=== PATIENT | female | born 1995 | race Two or more races ===

== ENCOUNTER 2023-03-13 17:30 | Emergency (ER) | payer OTHER ==
[~2023-03-13] VITALS: Ht 167.6 cm; Wt 82.6 kg
[2023-03-13] MEDS ORDERED: LEVOTHYROXINE25 MCG PO (17:58)
[2023-03-13 19:52] LABS: HEMATOCRIT 40.2 % (36.0-45.00); HEMOGLOBIN 13.9 g/dL (12.0-15.00); MEAN CORPUSCULAR HGB CONC 34.5 g/dl (32.0-36.0); PLATELET COUNT 275 K/uL (150-450); RED BLOOD COUNT 4.62 M/uL (4.00-6.00); RED CELL DISTRIBUTION WIDTH 14.2 % (11.5-14.5)
[2023-03-13 20:31] LABS: BILIRUBIN TOTAL 0.51 mg/dL (0.3-1.2); CALCIUM 8.8 mg/dL (8.5-10.1); CREATININE SERUM 0.74 mg/dL (0.55-1.02); GFR 94.14; GLOBULINA 3.3 G/DL (2.4-3.5); POTASSIUM 3.94 mEq/L (3.5-5.1); TOTAL PROTEIN 7.3 gm/dL (6.4-8.2)
[2023-03-13 20:40] LABS: PH,URINE 6.5 (5.0-8.0); URINE APPEARANCE Clear; URINE BILIRRUBIN Negative (NEGATIVE); URINE BLOOD Negative; URINE COLOR Yellow; URINE GLUCOSE Negative (NEGATIVE); URINE LEUKOCYTE Trace; URINE NITRATE Negative; URINE PROTEIN Negative (NEGATIVE)
[2023-03-13 20:44] LABS: URINE BACTERIA 2327.1 uL (0.0-1933); URINE EPITHELIAL CELLS 24.4 uL (0.0-38.8); URINE RBC 21.1 uL (0.0-20.8); URINE WBC 13.7 uL (0.0-23.2)
== END 2023-03-14 06:48 | disposition home or self-care (01) ==
LOC: EDBD 17:30 → ER 17:30
PROVIDERS: Emergency Medicine
DX: R10.84 Generalized abdominal pain (principal)